=== PATIENT | female | born 1935 | race Caucasian/White ===

== ENCOUNTER 2018-05-14 10:31 | Inpatient (IN) | payer MEDICARE, OTHER ==
[2018-05-14] MEDS: IPRATROPIUM (NEB) 0.5 MG/2.5 ML AMP NEB (10:48)
[2018-05-14] MEDS: ALBUTEROL 0.083% (NEB) 2.5 MG/3 ML AMP NEB (10:48)
[2018-05-14 11:06] LABS: ADD MAN DIFF? NO
[2018-05-14 11:12] LABS: WHITE BLOOD COUNT 7.1 10^3/ul (4.8-10.8)
[2018-05-14 11:12] LABS: BASOPHIL # 0.1 10^3/ul (0.0-0.1); BASOPHILS % 0.7 % (0.0-2.0); EOSINOPHILS # 0.3 10^3/ul (0.0-0.5); EOSINOPHILS % 3.5 % (0.0-7.0); HEMOGLOBIN 11.6 g/dl (12.0-16.0); LYMPHOCYTES # 2.3 10^3/ul (0.8-2.9); LYMPHOCYTES % 32.8 % (15.0-51.0); MEAN CORPUSCULAR HEMOGLOBIN 28.9 pg (29.0-33.0); MEAN CORPUSCULAR HGB CONC 31.4 g/dl (32.0-37.0); MEAN CORPUSCULAR VOLUME 92.3 fl (82.0-101.0); MEAN PLATELET VOLUME 10.2 fl (7.4-10.4); MONOCYTE # 0.4 10^3/ul (0.3-0.9); MONOCYTES % 6.1 % (0.0-11.0); NEUTROPHILS % 56.6 % (39.0-77.0); PLATELET COUNT 184 10^3/UL (140-415); RED BLOOD COUNT 4.01 10^6/ul (4.20-5.40); RED CELL DISTRIBUTION WIDTH 13.9 % (11.5-14.5)
[2018-05-14 11:27] LABS: ANION GAP 8 (5-13); BLOOD UREA NITROGEN 17 mg/dl (7-20); CALCIUM 8.9 mg/dl (8.4-10.2); CARBON DIOXIDE 34 mmol/L (21-31); CHLORIDE 101 mmol/L (97-110); CREATININE 0.99 mg/dl (0.44-1.00); GLUCOSE 95 mg/dl (70-220); POTASSIUM 4.4 mmol/L (3.5-5.1); SODIUM 143 mmol/L (135-144)
[2018-05-14 11:38] LABS: TROPONIN-I < 0.012 ng/ml (0.000-0.120)
[2018-05-14] MEDS: CEFEPIME 2GM/50 ML (PMX) 50 ML IVPB (12:04)
[2018-05-14] MEDS: SODIUM CHLORIDE 0.9% 1L BAG IV* (12:04)
[2018-05-14] MEDS: VANCOMYCIN 1 GM (PMX) 250 ML IVPB (12:47)
[2018-05-14] MEDS ORDERED: ACETAMINOPHEN 325 MG TAB PO (13:30)
[2018-05-14] MEDS ORDERED: ONDANSETRON 4 MG INJ IV (13:30)
[2018-05-14] MEDS ORDERED: NACL 0.9% 3 ML SYG IV (14:00)
[2018-05-14] MEDS ORDERED: VANCOMYCIN IV PER PHARMACY XX (14:00)
[2018-05-14] MEDS ORDERED: SENNA TAB PO (14:30)
[2018-05-14] MEDS: SOD CHLORIDE 0.9% 100 ML (15:45)
[2018-05-14] MEDS: IOHEXOL 300MG/ML 150 ML BTL (15:45)
[2018-05-14] MEDS: PIPER-TAZO 2.25 GM (PMX) 50 ML IVPB (17:56)
[2018-05-14] MEDS ORDERED: PIPER-TAZO 3.375 GM IV (PMX) 100 ML IVPB (18:00)
[2018-05-14] MEDS: VANCOMYCIN 750 MG in SOD CHLORIDE 0.9% 150 ML IVPB (18:51)
[2018-05-14] MEDS: QUETIAPINE 25 MG TAB PO (20:43)
[2018-05-14] MEDS: DEXAMETHASONE 1 MG TAB PO (20:43)
[2018-05-14] MEDS: ALBUTEROL/IPRATROPIUM (NEB) 3 ML AMP HHN (21:01)
[2018-05-14] MEDS: LORAZEPAM 1 MG TAB PO (21:32)
[2018-05-15] MEDS: PIPER-TAZO 2.25 GM (PMX) 50 ML IVPB ×5 (01:05→20:31)
[2018-05-15] MEDS ORDERED: ALBUTEROL/IPRATROPIUM (NEB) 3 ML AMP (05:09)
[2018-05-15] MEDS: LEVOTHYROXINE 25 MCG TAB PO (05:13)
[2018-05-15] MEDS: ALBUTEROL/IPRATROPIUM (NEB) 3 ML AMP HHN ×6 (05:15→22:03)
[2018-05-15 06:02] LABS: ADD MAN DIFF? NO
[2018-05-15 06:04] LABS: EOSINOPHILS # 0.2 10^3/ul (0.0-0.5); EOSINOPHILS % 2.2 % (0.0-7.0); HEMATOCRIT 38.2 % (37.0-47.0); HEMOGLOBIN 11.9 g/dl (12.0-16.0); LYMPHOCYTES # 1.4 10^3/ul (0.8-2.9); LYMPHOCYTES % 19.2 % (15.0-51.0); MEAN CORPUSCULAR HEMOGLOBIN 29.8 pg (29.0-33.0); MEAN CORPUSCULAR HGB CONC 31.2 g/dl (32.0-37.0); MEAN CORPUSCULAR VOLUME 95.7 fl (82.0-101.0); MEAN PLATELET VOLUME 9.8 fl (7.4-10.4); MONOCYTE # 0.2 10^3/ul (0.3-0.9); MONOCYTES % 2.9 % (0.0-11.0); NEUTROPHIL # 5.4 10^3/ul (1.6-7.5); NEUTROPHILS % 75.4 % (39.0-77.0); PLATELET COUNT 157 10^3/UL (140-415); RED BLOOD COUNT 3.99 10^6/ul (4.20-5.40); RED CELL DISTRIBUTION WIDTH 13.9 % (11.5-14.5)
[2018-05-15 06:04] LABS: WHITE BLOOD COUNT 7.1 10^3/ul (4.8-10.8)
[2018-05-15 06:31] LABS: ALANINE AMINOTRANSFERASE 10 IU/L (13-69); ALBUMIN 3.7 g/dl (3.3-4.9); ALBUMIN/GLOBULIN RATIO 1.42; ALKALINE PHOSPHATASE 65 IU/L (42-121); ANION GAP 9 (5-13); ASPARTATE AMINO TRANSFERASE 18 IU/L (15-46); BILIRUBIN,INDIRECT 0.5 mg/dl (0-1.1); BILIRUBIN,TOTAL 0.5 mg/dl (0.2-1.3); BLOOD UREA NITROGEN 14 mg/dl (7-20); CALCIUM 8.5 mg/dl (8.4-10.2); CARBON DIOXIDE 33 mmol/L (21-31); CHLORIDE 103 mmol/L (97-110); CREATININE 1.01 mg/dl (0.44-1.00); GLUCOSE 121 mg/dl (70-220); POTASSIUM 4.2 mmol/L (3.5-5.1); SODIUM 145 mmol/L (135-144); TOTAL PROTEIN 6.3 g/dl (6.1-8.1)
[2018-05-15] MEDS: GUAIFENESIN/DM 5ML CUP PO ×3 (07:01→22:58)
[2018-05-15 08:02] LABS: HEMOGLOBIN A1C 5.5 % (0-5.9)
[2018-05-15] MEDS: FUROSEMIDE 20 MG TAB PO (09:00)
[2018-05-15] MEDS: LORAZEPAM 1 MG TAB PO ×3 (09:00→22:20)
[2018-05-15] MEDS: SPIRONOLACTONE 25 MG TAB PO (09:00)
[2018-05-15] MEDS: DEXAMETHASONE 1 MG TAB PO ×2 (09:28→22:20)
[2018-05-15] MEDS: POTASSIUM CHLORIDE (SR) 20 MEQ TAB PO (09:28)
[2018-05-15] MEDS: ENOXAPARIN 40 MG/0.4 ML SYG SC (09:39)
[2018-05-15] MEDS: METOPROLOL (XL) 25 MG TAB PO (10:20)
[2018-05-15] MEDS: VANCOMYCIN 1.25 GM in SOD CHLORIDE 0.9% 250 ML IVPB (16:42)
[2018-05-15] MEDS: QUETIAPINE 25 MG TAB PO (22:20)
[2018-05-16] MEDS: PIPER-TAZO 2.25 GM (PMX) 50 ML IVPB ×4 (01:09→20:34)
[2018-05-16] MEDS: ACETAMINOPHEN 325 MG TAB PO ×2 (03:15→13:32)
[2018-05-16] MEDS: LORAZEPAM 1 MG TAB PO ×2 (08:53→21:48)
[2018-05-16] MEDS: FUROSEMIDE 20 MG TAB PO (08:53)
[2018-05-16] MEDS: POTASSIUM CHLORIDE (SR) 20 MEQ TAB PO (08:53)
[2018-05-16] MEDS: METOPROLOL (XL) 25 MG TAB PO (08:54)
[2018-05-16] MEDS: SPIRONOLACTONE 25 MG TAB PO (08:55)
[2018-05-16] MEDS: DEXAMETHASONE 1 MG TAB PO ×2 (08:55→21:48)
[2018-05-16] MEDS: ENOXAPARIN 40 MG/0.4 ML SYG SC (08:57)
[2018-05-16] MEDS: ALBUTEROL/IPRATROPIUM (NEB) 3 ML AMP HHN ×4 (09:08→20:00)
[2018-05-16] MEDS: LEVOTHYROXINE 25 MCG TAB PO (09:58)
[2018-05-16] MEDS: VANCOMYCIN 1.25 GM in SOD CHLORIDE 0.9% 250 ML IVPB (16:43)
[2018-05-16] MEDS: QUETIAPINE 25 MG TAB PO (21:00)
[2018-05-17] MEDS: QUETIAPINE 25 MG TAB PO (00:10)
[2018-05-17] MEDS: ACETAMINOPHEN 325 MG TAB PO (00:17)
[2018-05-17] MEDS: HALOPERIDOL 5 MG INJ IM (01:09)
[2018-05-17] MEDS: LEVOTHYROXINE 25 MCG TAB PO (06:00)
[2018-05-17] MEDS: PIPER-TAZO 2.25 GM (PMX) 50 ML IVPB ×2 (06:44)
[2018-05-17 07:30] LABS: CREATININE 0.93 mg/dl (0.44-1.00)
[2018-05-17 07:30] LABS: BLOOD UREA NITROGEN 12 mg/dl (7-20)
[2018-05-17] MEDS: FUROSEMIDE 20 MG TAB PO (08:04)
[2018-05-17] MEDS: SPIRONOLACTONE 25 MG TAB PO (08:04)
[2018-05-17] MEDS: DEXAMETHASONE 1 MG TAB PO (09:00)
[2018-05-17] MEDS: POTASSIUM CHLORIDE (SR) 20 MEQ TAB PO (09:19)
[2018-05-17] MEDS: LORAZEPAM 1 MG TAB PO (09:19)
[2018-05-17] MEDS: METOPROLOL (XL) 25 MG TAB PO (09:19)
[2018-05-17] MEDS: ENOXAPARIN 40 MG/0.4 ML SYG SC (09:21)
[2018-05-17] MEDS: ALBUTEROL/IPRATROPIUM (NEB) 3 ML AMP HHN ×2 (09:40→12:50)
== END 2018-05-17 14:15 | disposition home or self-care (01) | DRG 177 ==
LOC: E/R 10:31 → 2NE 13:09
DX: J69.0 Pneumonitis due to inhalation of food and vomit (principal); J96.90 Respiratory failure, unspecified, unspecified whether with hypoxia or hypercapnia; C78.00 Secondary malignant neoplasm of unspecified lung; C73 Malignant neoplasm of thyroid gland; Z93.0 Tracheostomy status; Z79.82 Long term (current) use of aspirin
CPT/HCPCS: 36415; 71045; 71260; 80048; 80053; 82565; 82962; 83036; 83605; 84484; 84520; 85025; 87040; 87070; 92610; 93005; 94640; 94664; 96365; 96375; 97163; 99291-25

== ENCOUNTER 2018-07-26 04:21 | Inpatient (IN) | payer MEDICARE, OTHER ==
[2018-07-26 05:54] LABS: ADD MAN DIFF? NO
[2018-07-26 05:56] LABS: WHITE BLOOD COUNT 6.6 10^3/ul (4.8-10.8)
[2018-07-26 05:56] LABS: BASOPHILS % 0.5 % (0.0-2.0); EOSINOPHILS # 0.1 10^3/ul (0.0-0.5); EOSINOPHILS % 0.9 % (0.0-7.0); HEMATOCRIT 37.3 % (37.0-47.0); HEMOGLOBIN 11.1 g/dl (12.0-16.0); LYMPHOCYTES # 1.3 10^3/ul (0.8-2.9); LYMPHOCYTES % 19.4 % (15.0-51.0); MEAN CORPUSCULAR HEMOGLOBIN 29.2 pg (29.0-33.0); MEAN CORPUSCULAR HGB CONC 29.8 g/dl (32.0-37.0); MEAN CORPUSCULAR VOLUME 98.2 fl (82.0-101.0); MEAN PLATELET VOLUME 10.8 fl (7.4-10.4); MONOCYTE # 0.4 10^3/ul (0.3-0.9); MONOCYTES % 6.1 % (0.0-11.0); NEUTROPHIL # 4.8 10^3/ul (1.6-7.5); NEUTROPHILS % 72.5 % (39.0-77.0); PLATELET COUNT 196 10^3/UL (140-415)
[2018-07-26] MEDS: PANTOPRAZOLE (EC) 40 MG TAB PO (06:00)
[2018-07-26 06:01] LABS: INR 0.97; PARTIAL THROMBOPLASTIN TIME 25.2 Sec (23.0-35.0)
[2018-07-26 06:02] LABS: ALANINE AMINOTRANSFERASE 26 IU/L (13-69); ALBUMIN/GLOBULIN RATIO 1.21; ALKALINE PHOSPHATASE 52 IU/L (42-121); ASPARTATE AMINO TRANSFERASE 23 IU/L (15-46); BILIRUBIN,INDIRECT 0.2 mg/dl (0-1.1); BILIRUBIN,TOTAL 0.2 mg/dl (0.2-1.3); BLOOD UREA NITROGEN 35 mg/dl (7-20); CALCIUM 8.1 mg/dl (8.4-10.2); CHLORIDE 85 mmol/L (97-110); CREATININE 1.24 mg/dl (0.44-1.00); GLUCOSE 155 mg/dl (70-220); POTASSIUM 3.9 mmol/L (3.5-5.1); SODIUM 142 mmol/L (135-144); TOTAL PROTEIN 7.3 g/dl (6.1-8.1)
[2018-07-26 06:14] LABS: TROPONIN-I 0.037 ng/ml (0.000-0.120)
[2018-07-26 06:27] LABS: ANION GAP 13 (5-13); CARBON DIOXIDE 44 mmol/L (21-31)
[2018-07-26] MEDS: ACETAMINOPHEN 650 MG SUPP PR (06:30)
[2018-07-26] MEDS: CEFEPIME 1GM/50 ML (PMX) 50 ML IVPB (06:54)
[2018-07-26] MEDS: SOD CHLORIDE 0.9% 1,000 ML IV ×2 (06:56→22:51)
[2018-07-26] MEDS: LEVOTHYROXINE 25 MCG TAB PO (07:00)
[2018-07-26] MEDS ORDERED: ONDANSETRON 4 MG INJ IV (07:00)
[2018-07-26] MEDS ORDERED: NACL 0.9% 3 ML SYG IV (07:00)
[2018-07-26] MEDS ORDERED: VANCOMYCIN IV PER PHARMACY XX (07:30)
[2018-07-26] MEDS: VANCOMYCIN 1 GM (PMX) 250 ML IVPB (08:33)
[2018-07-26] MEDS: HEPARIN 5,000 UNIT/1 ML VIAL SC ×2 (09:00→20:41)
[2018-07-26 10:20] LABS: LACTIC ACID 0.8 mmol/L (0.5-2.0)
[2018-07-26] MEDS: PIPER-TAZO 3.375 GM IV (PMX) 100 ML IVPB ×2 (11:50→22:50)
[2018-07-26] MEDS ORDERED: PIPER-TAZO 3.375 GM IV (PMX) 100 ML IVPB (12:00)
[2018-07-26] MEDS: VANCOMYCIN 1 GM 250 ML IVPB (13:11)
[2018-07-26] MEDS: LEVALBUTEROL (NEB) 1.25 MG/0.5 ML AMP HHN ×2 (14:06→19:24)
[2018-07-26] MEDS: LORAZEPAM 1 MG TAB PO (14:12)
[2018-07-26] MEDS: ACETAMINOPHEN 325 MG TAB PO (16:07)
[2018-07-27 00:22] LABS: AADO2 Arterial 156.3 mmHg (7.0-24.0); Allen Test ACCEPTAB; Arterial Blood Gas Oxygen Sat 84.3 mmHG (95.0-100.0); Arterial COHb 0.6 % (0.0-3.0); Arterial Fraction of Oxyhgb 83.6 % (93.0-99.0); Arterial HCO3 42.9 mmol/L (22.0-26.0); Arterial MetHb 0.2 % (0.0-1.5); Arterial pCO2 70.9 mmhg (35-45); MODE TRACH COLLAR; Site Right Brachial
[2018-07-27] MEDS: LEVALBUTEROL (NEB) 1.25 MG/0.5 ML AMP HHN ×4 (01:07→19:41)
[2018-07-27] MEDS: ACETAMINOPHEN 325 MG TAB PO (03:18)
[2018-07-27 05:38] LABS: ADD MAN DIFF? NO
[2018-07-27 05:40] LABS: ABNORMAL IP MESSAGE 1; BASOPHILS % 0.3 % (0.0-2.0); EOSINOPHILS # 0.3 10^3/ul (0.0-0.5); EOSINOPHILS % 2.4 % (0.0-7.0); HEMOGLOBIN 9.8 g/dl (12.0-16.0); LYMPHOCYTES # 0.4 10^3/ul (0.8-2.9); LYMPHOCYTES % 3.9 % (15.0-51.0); MEAN CORPUSCULAR HEMOGLOBIN 29.1 pg (29.0-33.0); MEAN CORPUSCULAR HGB CONC 29.7 g/dl (32.0-37.0); MEAN CORPUSCULAR VOLUME 97.9 fl (82.0-101.0); MEAN PLATELET VOLUME 10.3 fl (7.4-10.4); MONOCYTE # 0.7 10^3/ul (0.3-0.9); MONOCYTES % 6.6 % (0.0-11.0); NEUTROPHILS % 86.2 % (39.0-77.0); PLATELET COUNT 149 10^3/UL (140-415); RED BLOOD COUNT 3.37 10^6/ul (4.20-5.40)
[2018-07-27 05:40] LABS: WHITE BLOOD COUNT 10.4 10^3/ul (4.8-10.8)
[2018-07-27 05:42] LABS: POSITIVE DIFF @See below
[2018-07-27 05:52] LABS: HEMOGLOBIN A1C 5.4 % (0-5.9)
[2018-07-27 06:07] LABS: ALANINE AMINOTRANSFERASE 20 IU/L (13-69); ALBUMIN 3.2 g/dl (3.3-4.9); ALBUMIN/GLOBULIN RATIO 1.18; ALKALINE PHOSPHATASE 40 IU/L (42-121); ASPARTATE AMINO TRANSFERASE 22 IU/L (15-46); BILIRUBIN,INDIRECT 0.2 mg/dl (0-1.1); BILIRUBIN,TOTAL 0.2 mg/dl (0.2-1.3); BLOOD UREA NITROGEN 29 mg/dl (7-20); CALCIUM 7.6 mg/dl (8.4-10.2); CHLORIDE 92 mmol/L (97-110); CREATININE 1.22 mg/dl (0.44-1.00); GLUCOSE 123 mg/dl (70-220); POTASSIUM 3.3 mmol/L (3.5-5.1); SODIUM 141 mmol/L (135-144); TOTAL PROTEIN 5.9 g/dl (6.1-8.1)
[2018-07-27] MEDS: PANTOPRAZOLE (EC) 40 MG TAB PO (06:23)
[2018-07-27] MEDS: PIPER-TAZO 3.375 GM IV (PMX) 100 ML IVPB ×3 (06:23→20:52)
[2018-07-27] MEDS: LEVOTHYROXINE 25 MCG TAB PO (06:23)
[2018-07-27 06:26] LABS: ANION GAP 7 (5-13); CARBON DIOXIDE 42 mmol/L (21-31)
[2018-07-27] MEDS: HEPARIN 5,000 UNIT/1 ML VIAL SC ×2 (08:49→20:52)
[2018-07-27 11:55] LABS: AADO2 Arterial 208.4 mmHg (7.0-24.0); Arterial Blood Gas Oxygen Sat 97.1 mmHG (95.0-100.0); Arterial COHb 0.2 % (0.0-3.0); Arterial Fraction of Oxyhgb 96.6 % (93.0-99.0); Arterial HCO3 48.1 mmol/L (22.0-26.0); Arterial MetHb 0.3 % (0.0-1.5); Arterial pCO2 105.5 mmhg (35-45); MODE TRACH COLLAR; Site Right Brachial
[2018-07-27] MEDS: SOD CHLORIDE 0.9% 1,000 ML IV (13:23)
[2018-07-27] MEDS: VANCOMYCIN 1 GM 250 ML IVPB (13:30)
[2018-07-27 14:10] LABS: AADO2 Arterial 216.8 mmHg (7.0-24.0); Arterial Base Excess 16.8 mmol/L (-3.0-3); Arterial Blood Gas Oxygen Sat 95.2 mmHG (95.0-100.0); Arterial COHb 0.3 % (0.0-3.0); Arterial Fraction of Oxyhgb 94.7 % (93.0-99.0); Arterial HCO3 43.5 mmol/L (22.0-26.0); Arterial MetHb 0.2 % (0.0-1.5); Arterial pCO2 62.8 mmhg (35-45); MODE VENT - PC; Site Right Brachial
[2018-07-27] MEDS: PROPOFOL 100 ML IV ×2 (14:47→19:37)
[2018-07-27] MEDS: POTASSIUM CHLORIDE 100 ML IVPB ×2 (16:31→18:49)
[2018-07-27] MEDS ORDERED: NORepinephrine 8MG/250 ML (PMX 250 ML IV (19:30)
[2018-07-28] MEDS: SOD CHLORIDE 0.9% 1,000 ML IV ×2 (00:06→13:27)
[2018-07-28] MEDS: LEVALBUTEROL (NEB) 1.25 MG/0.5 ML AMP HHN ×4 (01:21→19:27)
[2018-07-28] MEDS: PANTOPRAZOLE (EC) 40 MG TAB PO (05:01)
[2018-07-28] MEDS: PIPER-TAZO 3.375 GM IV (PMX) 100 ML IVPB ×3 (05:01→20:13)
[2018-07-28] MEDS: LEVOTHYROXINE 25 MCG TAB PO (05:01)
[2018-07-28 06:15] LABS: ADD MAN DIFF? NO
[2018-07-28 06:19] LABS: BASOPHILS % 0.5 % (0.0-2.0); EOSINOPHILS # 0.4 10^3/ul (0.0-0.5); EOSINOPHILS % 6.3 % (0.0-7.0); HEMATOCRIT 31.1 % (37.0-47.0); HEMOGLOBIN 9.6 g/dl (12.0-16.0); LYMPHOCYTES # 0.7 10^3/ul (0.8-2.9); LYMPHOCYTES % 12.5 % (15.0-51.0); MEAN CORPUSCULAR HEMOGLOBIN 29.4 pg (29.0-33.0); MEAN CORPUSCULAR HGB CONC 30.9 g/dl (32.0-37.0); MEAN CORPUSCULAR VOLUME 95.4 fl (82.0-101.0); MEAN PLATELET VOLUME 9.9 fl (7.4-10.4); MONOCYTE # 0.3 10^3/ul (0.3-0.9); NEUTROPHIL # 4.4 10^3/ul (1.6-7.5); NEUTROPHILS % 75.4 % (39.0-77.0); PLATELET COUNT 118 10^3/UL (140-415); RED BLOOD COUNT 3.26 10^6/ul (4.20-5.40)
[2018-07-28 06:19] LABS: WHITE BLOOD COUNT 5.8 10^3/ul (4.8-10.8)
[2018-07-28 06:53] LABS: ANION GAP 5 (5-13); BLOOD UREA NITROGEN 32 mg/dl (7-20); CALCIUM 7.7 mg/dl (8.4-10.2); CARBON DIOXIDE 37 mmol/L (21-31); CHLORIDE 100 mmol/L (97-110); GLUCOSE 92 mg/dl (70-220); MAGNESIUM 2.1 mg/dl (1.7-2.5); PHOSPHORUS 2.2 mg/dl (2.5-4.9); POTASSIUM 3.4 mmol/L (3.5-5.1); SODIUM 142 mmol/L (135-144)
[2018-07-28] MEDS ORDERED: ADENOSINE 3 MG/ML SYRINGE IV (07:00)
[2018-07-28 09:00] LABS: AADO2 Arterial 279.4 mmHg (7.0-24.0); Allen Test ACCEPTAB; Arterial Base Excess 11.7 mmol/L (-3.0-3); Arterial Blood Gas Oxygen Sat 97.5 mmHG (95.0-100.0); Arterial COHb 0.3 % (0.0-3.0); Arterial MetHb 0.2 % (0.0-1.5); Arterial pCO2 45.9 mmhg (35-45); Blood Gas IEPAP 25/5; Site Right Radial
[2018-07-28] MEDS: HEPARIN 5,000 UNIT/1 ML VIAL SC ×2 (09:51→20:20)
[2018-07-28] MEDS: POTASSIUM CHLORIDE 50 ML IVPB ×2 (09:51→10:47)
[2018-07-28] MEDS: PROPOFOL 100 ML IV (12:50)
[2018-07-28] MEDS: VANCOMYCIN 1 GM 250 ML IVPB (12:57)
[2018-07-28 13:12] LABS: VANCOMYCIN,TROUGH 13.7 ug/ml (10.0-20.0)
[2018-07-28] MEDS: LORAZEPAM 4 MG/ML VIAL IV ×2 (16:56→22:56)
[2018-07-28] MEDS: DOCUSATE SODIUM 100 MG CAP PO (20:12)
[2018-07-28] MEDS: DIPHENHYDRAMINE 50 MG INJ IV (20:13)
[2018-07-28] MEDS ORDERED: METOPROLOL 5 MG INJ (23:09)
[2018-07-28] MEDS ORDERED: DILTIAZEM 25 MG INJ (23:13)
[2018-07-28] MEDS ORDERED: AMIODARONE 150MG/D5W BOLUS 100 ML (23:18)
[2018-07-28] MEDS: ADENOSINE 6 MG INJ IV ×2 (23:25→23:27)
[2018-07-28] MEDS: AMIODARONE 150MG/D5W BOLUS 100 ML IV (23:28)
[2018-07-28] MEDS: METOPROLOL 5 MG INJ IV (23:43)
[2018-07-28 23:55] LABS: Allen Test ACCEPTAB; Arterial Base Excess 6.3 mmol/L (-3.0-3); Arterial Blood Gas Oxygen Sat 97.7 mmHG (95.0-100.0); Arterial COHb 0.3 % (0.0-3.0); Arterial Fraction of Oxyhgb 97.2 % (93.0-99.0); Arterial HCO3 32.6 mmol/L (22.0-26.0); Arterial MetHb 0.2 % (0.0-1.5); Arterial pCO2 55.4 mmhg (35-45); Blood Gas PS 25/5; Site Right Radial
[2018-07-29] MEDS: AMIODARONE 900 MG in DEXTROSE 5% 482 ML IV (00:03)
[2018-07-29] MEDS: PROPOFOL 100 ML IV ×3 (01:00→19:56)
[2018-07-29] MEDS: LEVALBUTEROL (NEB) 1.25 MG/0.5 ML AMP HHN ×4 (01:19→20:55)
[2018-07-29] MEDS: LORAZEPAM 4 MG/ML VIAL IV ×2 (03:12→21:08)
[2018-07-29 05:14] LABS: ADD MAN DIFF? NO
[2018-07-29] MEDS: LEVOTHYROXINE 25 MCG TAB PO (05:18)
[2018-07-29] MEDS: SOD CHLORIDE 0.9% 1,000 ML IV ×3 (05:18→20:44)
[2018-07-29] MEDS: PANTOPRAZOLE (EC) 40 MG TAB PO (05:18)
[2018-07-29] MEDS: PIPER-TAZO 3.375 GM IV (PMX) 100 ML IVPB ×3 (05:18→21:08)
[2018-07-29 05:24] LABS: WHITE BLOOD COUNT 6.3 10^3/ul (4.8-10.8)
[2018-07-29 05:24] LABS: BASOPHILS % 0.3 % (0.0-2.0); EOSINOPHILS # 0.4 10^3/ul (0.0-0.5); EOSINOPHILS % 6.7 % (0.0-7.0); HEMATOCRIT 33.4 % (37.0-47.0); HEMOGLOBIN 10.3 g/dl (12.0-16.0); LYMPHOCYTES # 0.6 10^3/ul (0.8-2.9); LYMPHOCYTES % 9.5 % (15.0-51.0); MEAN CORPUSCULAR HEMOGLOBIN 29.6 pg (29.0-33.0); MEAN CORPUSCULAR HGB CONC 30.8 g/dl (32.0-37.0); MONOCYTE # 0.5 10^3/ul (0.3-0.9); MONOCYTES % 7.6 % (0.0-11.0); NEUTROPHIL # 4.8 10^3/ul (1.6-7.5); NEUTROPHILS % 75.6 % (39.0-77.0); PLATELET COUNT 124 10^3/UL (140-415); RED BLOOD COUNT 3.48 10^6/ul (4.20-5.40); RED CELL DISTRIBUTION WIDTH 14.9 % (11.5-14.5)
[2018-07-29 05:39] LABS: ANION GAP 8 (5-13); BLOOD UREA NITROGEN 30 mg/dl (7-20); CALCIUM 7.7 mg/dl (8.4-10.2); CARBON DIOXIDE 30 mmol/L (21-31); CHLORIDE 104 mmol/L (97-110); CREATININE 1.08 mg/dl (0.44-1.00); GLUCOSE 122 mg/dl (70-220); SODIUM 142 mmol/L (135-144)
[2018-07-29] MEDS: DOCUSATE SODIUM 100 MG CAP PO ×2 (09:00→19:55)
[2018-07-29] MEDS: HEPARIN 5,000 UNIT/1 ML VIAL SC ×2 (09:31→20:46)
[2018-07-29] MEDS: LIDOCAINE 1% (MPF) 5 ML VIAL SC (13:00)
[2018-07-29] MEDS: SOD CHLORIDE 0.9% 500 ML IV (13:04)
[2018-07-29] MEDS: VANCOMYCIN 1 GM 250 ML IVPB (13:32)
[2018-07-29] MEDS: DIPHENHYDRAMINE 50 MG INJ IV (23:37)
[2018-07-30] MEDS: LEVALBUTEROL (NEB) 1.25 MG/0.5 ML AMP HHN ×3 (01:37→15:09)
[2018-07-30] MEDS: PROPOFOL 100 ML IV ×2 (01:41→12:48)
[2018-07-30] MEDS: SOD CHLORIDE 0.9% 250 ML IV (04:21)
[2018-07-30 05:14] LABS: ADD MAN DIFF? NO
[2018-07-30 05:26] LABS: WHITE BLOOD COUNT 4.8 10^3/ul (4.8-10.8)
[2018-07-30 05:26] LABS: BASOPHILS % 0.4 % (0.0-2.0); EOSINOPHILS # 0.5 10^3/ul (0.0-0.5); EOSINOPHILS % 9.5 % (0.0-7.0); HEMATOCRIT 28.3 % (37.0-47.0); HEMOGLOBIN 8.7 g/dl (12.0-16.0); LYMPHOCYTES # 0.9 10^3/ul (0.8-2.9); LYMPHOCYTES % 18.1 % (15.0-51.0); MEAN CORPUSCULAR HEMOGLOBIN 29.2 pg (29.0-33.0); MEAN CORPUSCULAR HGB CONC 30.7 g/dl (32.0-37.0); MEAN PLATELET VOLUME 11.2 fl (7.4-10.4); MONOCYTE # 0.4 10^3/ul (0.3-0.9); MONOCYTES % 8.2 % (0.0-11.0); NEUTROPHILS % 63.4 % (39.0-77.0); PLATELET COUNT 114 10^3/UL (140-415); RED BLOOD COUNT 2.98 10^6/ul (4.20-5.40); RED CELL DISTRIBUTION WIDTH 14.8 % (11.5-14.5)
[2018-07-30 05:40] LABS: POSITIVE DIFF @See below
[2018-07-30 05:57] LABS: ANION GAP 5 (5-13); BLOOD UREA NITROGEN 27 mg/dl (7-20); CALCIUM 7.6 mg/dl (8.4-10.2); CARBON DIOXIDE 32 mmol/L (21-31); CHLORIDE 108 mmol/L (97-110); GLUCOSE 78 mg/dl (70-220); SODIUM 145 mmol/L (135-144)
[2018-07-30] MEDS: PANTOPRAZOLE (EC) 40 MG TAB PO (06:00)
[2018-07-30] MEDS: PIPER-TAZO 3.375 GM IV (PMX) 100 ML IVPB ×3 (06:05→21:55)
[2018-07-30] MEDS: SOD CHLORIDE 0.9% 1,000 ML IV (06:06)
[2018-07-30] MEDS: LEVOTHYROXINE 25 MCG TAB PO (06:47)
[2018-07-30] MEDS: HEPARIN 5,000 UNIT/1 ML VIAL SC ×2 (08:12→21:23)
[2018-07-30] MEDS: POTASSIUM CHLORIDE 50 ML IVPB ×3 (08:14→10:41)
[2018-07-30] MEDS: DOCUSATE SODIUM 100 MG CAP PO ×2 (08:34→21:00)
[2018-07-30] MEDS: VANCOMYCIN 1 GM 250 ML IVPB (13:17)
[2018-07-30] MEDS: LEVALBUTEROL (HFA) 15 GM INHALER INH (20:59)
[2018-07-31] MEDS: LEVALBUTEROL (HFA) 15 GM INHALER INH ×4 (01:14→19:26)
[2018-07-31] MEDS: PROPOFOL 100 ML IV (01:21)
[2018-07-31] MEDS: SOD CHLORIDE 0.9% 1,000 ML IV ×2 (01:21→16:02)
[2018-07-31 05:39] LABS: ADD MAN DIFF? NO
[2018-07-31 05:50] LABS: BASOPHILS % 0.2 % (0.0-2.0); EOSINOPHILS # 0.5 10^3/ul (0.0-0.5); EOSINOPHILS % 10.7 % (0.0-7.0); HEMATOCRIT 29.1 % (37.0-47.0); LYMPHOCYTES # 0.9 10^3/ul (0.8-2.9); LYMPHOCYTES % 17.5 % (15.0-51.0); MEAN CORPUSCULAR HEMOGLOBIN 29.2 pg (29.0-33.0); MEAN CORPUSCULAR HGB CONC 30.9 g/dl (32.0-37.0); MEAN CORPUSCULAR VOLUME 94.5 fl (82.0-101.0); MEAN PLATELET VOLUME 11.2 fl (7.4-10.4); MONOCYTE # 0.4 10^3/ul (0.3-0.9); MONOCYTES % 7.5 % (0.0-11.0); NEUTROPHIL # 3.2 10^3/ul (1.6-7.5); NEUTROPHILS % 63.7 % (39.0-77.0); PLATELET COUNT 113 10^3/UL (140-415); RED BLOOD COUNT 3.08 10^6/ul (4.20-5.40); RED CELL DISTRIBUTION WIDTH 14.9 % (11.5-14.5)
[2018-07-31] MEDS: PIPER-TAZO 3.375 GM IV (PMX) 100 ML IVPB ×3 (05:50→21:16)
[2018-07-31] MEDS: LORAZEPAM 4 MG/ML VIAL IV ×2 (05:50→14:36)
[2018-07-31] MEDS: PANTOPRAZOLE (EC) 40 MG TAB PO (06:00)
[2018-07-31 06:19] LABS: ANION GAP 9 (5-13); BLOOD UREA NITROGEN 23 mg/dl (7-20); CALCIUM 7.8 mg/dl (8.4-10.2); CARBON DIOXIDE 28 mmol/L (21-31); CHLORIDE 109 mmol/L (97-110); CREATININE 1.05 mg/dl (0.44-1.00); GLUCOSE 67 mg/dl (70-220); POTASSIUM 3.3 mmol/L (3.5-5.1); SODIUM 146 mmol/L (135-144)
[2018-07-31] MEDS: LEVOTHYROXINE 25 MCG TAB PO (06:53)
[2018-07-31] MEDS: DOCUSATE SODIUM 100 MG CAP PO ×2 (09:00→20:06)
[2018-07-31] MEDS: POTASSIUM CHLORIDE 100 ML IVPB ×2 (10:08→12:08)
[2018-07-31] MEDS: HEPARIN 5,000 UNIT/1 ML VIAL SC ×2 (10:39→20:08)
[2018-07-31] MEDS: POTASSIUM CHLORIDE 50 ML IVPB (12:04)
[2018-07-31] MEDS: VANCOMYCIN 1 GM 250 ML IVPB (13:49)
[2018-07-31] MEDS ORDERED: DEXMEDETOMIDINE HCL 200 MCG in SOD CHLORIDE 0.9% 48 ML IV (16:30)
[2018-07-31] MEDS: MIRTAZAPINE 15 MG TAB PO (20:07)
[2018-07-31] MEDS: HYDROmorphONE 0.5 MG/0.5 ML SYG IV (20:25)
[2018-08-01] MEDS: LEVALBUTEROL (HFA) 15 GM INHALER INH ×4 (01:26→20:21)
[2018-08-01] MEDS: HYDROmorphONE 0.5 MG/0.5 ML SYG IV ×2 (03:50→17:45)
[2018-08-01 04:50] LABS: Allen Test ACCEPTAB; Arterial Blood Gas Oxygen Sat 94.9 mmHG (95.0-100.0); Arterial COHb 0.3 % (0.0-3.0); Arterial Fraction of Oxyhgb 94.4 % (93.0-99.0); Arterial HCO3 21.4 mmol/L (22.0-26.0); Arterial MetHb 0.2 % (0.0-1.5); Arterial pCO2 32.1 mmhg (35-45); MODE VENT - AC; Site Left Radial
[2018-08-01 05:23] LABS: ADD MAN DIFF? NO
[2018-08-01 05:34] LABS: BASOPHILS % 0.4 % (0.0-2.0); EOSINOPHILS # 0.4 10^3/ul (0.0-0.5); EOSINOPHILS % 8.3 % (0.0-7.0); HEMATOCRIT 30.2 % (37.0-47.0); LYMPHOCYTES # 0.9 10^3/ul (0.8-2.9); LYMPHOCYTES % 16.1 % (15.0-51.0); MEAN CORPUSCULAR HEMOGLOBIN 28.6 pg (29.0-33.0); MEAN CORPUSCULAR HGB CONC 29.8 g/dl (32.0-37.0); MEAN CORPUSCULAR VOLUME 95.9 fl (82.0-101.0); MEAN PLATELET VOLUME 11.2 fl (7.4-10.4); MONOCYTE # 0.5 10^3/ul (0.3-0.9); MONOCYTES % 8.5 % (0.0-11.0); NEUTROPHIL # 3.5 10^3/ul (1.6-7.5); NEUTROPHILS % 66.3 % (39.0-77.0); PLATELET COUNT 133 10^3/UL (140-415); RED BLOOD COUNT 3.15 10^6/ul (4.20-5.40); RED CELL DISTRIBUTION WIDTH 14.7 % (11.5-14.5)
[2018-08-01 05:34] LABS: WHITE BLOOD COUNT 5.3 10^3/ul (4.8-10.8)
[2018-08-01] MEDS: PANTOPRAZOLE (EC) 40 MG TAB PO (06:00)
[2018-08-01 06:10] LABS: ANION GAP 7 (5-13); BLOOD UREA NITROGEN 20 mg/dl (7-20); CALCIUM 8.1 mg/dl (8.4-10.2); CARBON DIOXIDE 26 mmol/L (21-31); CHLORIDE 114 mmol/L (97-110); CREATININE 1.07 mg/dl (0.44-1.00); GLUCOSE 73 mg/dl (70-220); POTASSIUM 3.7 mmol/L (3.5-5.1); SODIUM 147 mmol/L (135-144)
[2018-08-01] MEDS: PIPER-TAZO 3.375 GM IV (PMX) 100 ML IVPB ×3 (06:37→21:40)
[2018-08-01] MEDS: SOD CHLORIDE 0.9% 1,000 ML IV ×2 (06:37→20:14)
[2018-08-01] MEDS: LEVOTHYROXINE 25 MCG TAB PO (06:37)
[2018-08-01] MEDS: DOCUSATE SODIUM 100 MG CAP PO ×2 (08:16→21:40)
[2018-08-01] MEDS: HEPARIN 5,000 UNIT/1 ML VIAL SC ×2 (08:21→21:41)
[2018-08-01] MEDS ORDERED: LORAZEPAM 2 MG INJ (09:13)
[2018-08-01] MEDS: LORAZEPAM 2 MG INJ IV ×2 (09:23→18:20)
[2018-08-01] MEDS: LIDOCAINE 1% (MPF) 5 ML VIAL SC ×2 (11:00→11:30)
[2018-08-01] MEDS: LORAZEPAM 2 MG INJ IM (16:27)
[2018-08-01] MEDS: VANCOMYCIN 1 GM 250 ML IVPB (18:38)
[2018-08-01] MEDS: FUROSEMIDE 20 MG INJ IV (21:39)
[2018-08-01] MEDS: MIRTAZAPINE 15 MG TAB PO (21:39)
[2018-08-01] MEDS: MUPIROCIN 2% 22 GM OINT TOP (23:40)
[2018-08-02] MEDS: LEVALBUTEROL (HFA) 15 GM INHALER INH ×4 (01:33→19:50)
[2018-08-02] MEDS: HYDROmorphONE 0.5 MG/0.5 ML SYG IV ×2 (02:40→14:58)
[2018-08-02 05:19] LABS: ADD MAN DIFF? NO
[2018-08-02 05:38] LABS: BASOPHILS % 0.3 % (0.0-2.0); EOSINOPHILS # 0.5 10^3/ul (0.0-0.5); EOSINOPHILS % 7.8 % (0.0-7.0); HEMATOCRIT 33.5 % (37.0-47.0); LYMPHOCYTES # 1.4 10^3/ul (0.8-2.9); LYMPHOCYTES % 22.9 % (15.0-51.0); MEAN CORPUSCULAR HEMOGLOBIN 28.7 pg (29.0-33.0); MEAN CORPUSCULAR HGB CONC 29.9 g/dl (32.0-37.0); MEAN CORPUSCULAR VOLUME 96.3 fl (82.0-101.0); MEAN PLATELET VOLUME 11.3 fl (7.4-10.4); MONOCYTE # 0.5 10^3/ul (0.3-0.9); MONOCYTES % 7.8 % (0.0-11.0); NEUTROPHIL # 3.7 10^3/ul (1.6-7.5); NEUTROPHILS % 60.9 % (39.0-77.0); PLATELET COUNT 146 10^3/UL (140-415); RED BLOOD COUNT 3.48 10^6/ul (4.20-5.40); RED CELL DISTRIBUTION WIDTH 14.6 % (11.5-14.5)
[2018-08-02] MEDS: PANTOPRAZOLE (EC) 40 MG TAB PO (05:39)
[2018-08-02 05:41] LABS: ANION GAP 9 (5-13); BLOOD UREA NITROGEN 18 mg/dl (7-20); CALCIUM 8.4 mg/dl (8.4-10.2); CARBON DIOXIDE 26 mmol/L (21-31); CHLORIDE 112 mmol/L (97-110); GLUCOSE 72 mg/dl (70-220); POSITIVE DIFF @See below; POTASSIUM 3.5 mmol/L (3.5-5.1); SODIUM 147 mmol/L (135-144)
[2018-08-02] MEDS: PIPER-TAZO 3.375 GM IV (PMX) 100 ML IVPB ×3 (05:57→21:46)
[2018-08-02] MEDS: LEVOTHYROXINE 25 MCG TAB PO (06:00)
[2018-08-02] MEDS: MUPIROCIN 2% 22 GM OINT TOP ×2 (08:06→21:46)
[2018-08-02] MEDS: HEPARIN 5,000 UNIT/1 ML VIAL SC ×2 (08:22→21:46)
[2018-08-02] MEDS: DOCUSATE SODIUM 10 MG/ML (10ML CUP) PO ×2 (10:00→21:00)
[2018-08-02] MEDS: SOD CHLORIDE 0.9% 1,000 ML IV (10:42)
[2018-08-02] MEDS: FUROSEMIDE 20 MG INJ IV ×2 (12:17→18:51)
[2018-08-02] MEDS: LORAZEPAM 2 MG INJ IV (13:40)
[2018-08-02 17:27] LABS: VANCOMYCIN,TROUGH 11.2 ug/ml (10.0-20.0)
[2018-08-02] MEDS: VANCOMYCIN 1 GM 250 ML IVPB (18:51)
[2018-08-02] MEDS: MIRTAZAPINE 15 MG TAB PO (21:46)
[2018-08-03] MEDS: HYDROmorphONE 0.5 MG/0.5 ML SYG IV ×2 (00:43→09:20)
[2018-08-03] MEDS: SOD CHLORIDE 0.9% 1,000 ML IV ×2 (01:03→15:08)
[2018-08-03] MEDS: LEVALBUTEROL (HFA) 15 GM INHALER INH ×4 (01:13→21:11)
[2018-08-03] MEDS: QUETIAPINE 25 MG TAB PO (02:07)
[2018-08-03] MEDS: LORAZEPAM 2 MG INJ IV ×2 (02:08→23:04)
[2018-08-03] MEDS: DIPHENHYDRAMINE 50 MG INJ IV (03:03)
[2018-08-03 05:13] LABS: ADD MAN DIFF? NO
[2018-08-03 05:27] LABS: WHITE BLOOD COUNT 5.7 10^3/ul (4.8-10.8)
[2018-08-03 05:27] LABS: BASOPHILS % 0.2 % (0.0-2.0); EOSINOPHILS # 0.4 10^3/ul (0.0-0.5); EOSINOPHILS % 7.6 % (0.0-7.0); HEMATOCRIT 33.4 % (37.0-47.0); HEMOGLOBIN 10.4 g/dl (12.0-16.0); LYMPHOCYTES # 1.3 10^3/ul (0.8-2.9); LYMPHOCYTES % 22.5 % (15.0-51.0); MEAN CORPUSCULAR HEMOGLOBIN 28.8 pg (29.0-33.0); MEAN CORPUSCULAR HGB CONC 31.1 g/dl (32.0-37.0); MEAN CORPUSCULAR VOLUME 92.5 fl (82.0-101.0); MEAN PLATELET VOLUME 10.6 fl (7.4-10.4); MONOCYTE # 0.4 10^3/ul (0.3-0.9); MONOCYTES % 7.4 % (0.0-11.0); NEUTROPHIL # 3.5 10^3/ul (1.6-7.5); NEUTROPHILS % 61.9 % (39.0-77.0); PLATELET COUNT 145 10^3/UL (140-415); RED BLOOD COUNT 3.61 10^6/ul (4.20-5.40); RED CELL DISTRIBUTION WIDTH 14.5 % (11.5-14.5)
[2018-08-03 06:03] LABS: ALBUMIN 3.3 g/dl (3.3-4.9); ANION GAP 8 (5-13); BLOOD UREA NITROGEN 15 mg/dl (7-20); CALCIUM 8.4 mg/dl (8.4-10.2); CARBON DIOXIDE 28 mmol/L (21-31); CHLORIDE 108 mmol/L (97-110); CREATININE 1.16 mg/dl (0.44-1.00); GLUCOSE 74 mg/dl (70-220); MAGNESIUM 1.7 mg/dl (1.7-2.5); POTASSIUM 3.3 mmol/L (3.5-5.1); SODIUM 144 mmol/L (135-144)
[2018-08-03] MEDS: LEVOTHYROXINE 25 MCG TAB PO (06:28)
[2018-08-03] MEDS: PANTOPRAZOLE (EC) 40 MG TAB PO (06:28)
[2018-08-03] MEDS: PIPER-TAZO 3.375 GM IV (PMX) 100 ML IVPB ×3 (06:28→21:17)
[2018-08-03] MEDS: DOCUSATE SODIUM 10 MG/ML (10ML CUP) PO ×2 (09:18→21:00)
[2018-08-03] MEDS: MUPIROCIN 2% 22 GM OINT TOP ×2 (09:26→21:17)
[2018-08-03] MEDS: HEPARIN 5,000 UNIT/1 ML VIAL SC ×2 (09:28→21:31)
[2018-08-03] MEDS: POTASSIUM CHLORIDE 100 ML IVPB ×2 (10:56→14:07)
[2018-08-03] MEDS: POTASSIUM CHLORIDE 50 ML IVPB ×2 (10:56→14:05)
[2018-08-03] MEDS: MIRTAZAPINE 15 MG TAB PO (21:00)
[2018-08-04] MEDS: LEVALBUTEROL (HFA) 15 GM INHALER INH ×4 (02:00→19:24)
[2018-08-04] MEDS: SOD CHLORIDE 0.9% 1,000 ML IV (05:26)
[2018-08-04] MEDS: PANTOPRAZOLE (EC) 40 MG TAB PO (05:37)
[2018-08-04] MEDS: PIPER-TAZO 3.375 GM IV (PMX) 100 ML IVPB ×3 (05:47→21:32)
[2018-08-04] MEDS: LEVOTHYROXINE 25 MCG TAB PO (06:35)
[2018-08-04] MEDS: DOCUSATE SODIUM 10 MG/ML (10ML CUP) PO ×2 (09:00→21:00)
[2018-08-04] MEDS: MUPIROCIN 2% 22 GM OINT TOP ×2 (09:17→21:31)
[2018-08-04] MEDS: HEPARIN 5,000 UNIT/1 ML VIAL SC ×2 (09:29→21:15)
[2018-08-04] MEDS: LORAZEPAM 2 MG INJ IV ×2 (12:27→20:32)
[2018-08-04] MEDS ORDERED: VANCOMYCIN IV PER PHARMACY XX (12:30)
[2018-08-04] MEDS: BUMETANIDE 6 MG in DEXTROSE 5% 36 ML IV (14:25)
[2018-08-04] MEDS: BARIUM SULFATE 135 ML (E-Z HD) PO ×2 (15:20→15:21)
[2018-08-04] MEDS: VANCOMYCIN HCL 2 GM in SOD CHLORIDE 0.9% 500 ML IVPB (15:27)
[2018-08-04] MEDS: MIRTAZAPINE 15 MG TAB PO ×2 (21:00→21:29)
[2018-08-05] MEDS: LEVALBUTEROL (HFA) 15 GM INHALER INH ×4 (01:23→19:26)
[2018-08-05] MEDS ORDERED: ALBUMIN HUMAN 25% 100 ML IV (01:30)
[2018-08-05] MEDS: LORAZEPAM 2 MG INJ IV ×2 (02:36→18:19)
[2018-08-05] MEDS: SOD CHLORIDE 0.9% 500 ML IV (02:39)
[2018-08-05] MEDS: HALOPERIDOL 5 MG INJ IM ×2 (04:20→20:48)
[2018-08-05] MEDS: PANTOPRAZOLE (EC) 40 MG TAB PO (05:31)
[2018-08-05] MEDS: PIPER-TAZO 3.375 GM IV (PMX) 100 ML IVPB ×3 (05:31→20:48)
[2018-08-05 06:41] LABS: ADD MAN DIFF? NO
[2018-08-05 06:48] LABS: WHITE BLOOD COUNT 5.4 10^3/ul (4.8-10.8)
[2018-08-05 06:48] LABS: BASOPHILS % 0.7 % (0.0-2.0); EOSINOPHILS # 0.4 10^3/ul (0.0-0.5); EOSINOPHILS % 7.6 % (0.0-7.0); HEMATOCRIT 34.4 % (37.0-47.0); HEMOGLOBIN 10.9 g/dl (12.0-16.0); LYMPHOCYTES # 1.2 10^3/ul (0.8-2.9); LYMPHOCYTES % 22.8 % (15.0-51.0); MEAN CORPUSCULAR HEMOGLOBIN 28.8 pg (29.0-33.0); MEAN CORPUSCULAR HGB CONC 31.7 g/dl (32.0-37.0); MEAN CORPUSCULAR VOLUME 90.8 fl (82.0-101.0); MEAN PLATELET VOLUME 10.4 fl (7.4-10.4); MONOCYTE # 0.6 10^3/ul (0.3-0.9); MONOCYTES % 10.2 % (0.0-11.0); NEUTROPHIL # 3.1 10^3/ul (1.6-7.5); NEUTROPHILS % 58.1 % (39.0-77.0); PLATELET COUNT 185 10^3/UL (140-415); RED BLOOD COUNT 3.79 10^6/ul (4.20-5.40); RED CELL DISTRIBUTION WIDTH 14.5 % (11.5-14.5)
[2018-08-05 07:36] LABS: ALBUMIN 3.4 g/dl (3.3-4.9); ANION GAP 11 (5-13); BLOOD UREA NITROGEN 12 mg/dl (7-20); CALCIUM 8.6 mg/dl (8.4-10.2); CARBON DIOXIDE 28 mmol/L (21-31); CHLORIDE 105 mmol/L (97-110); CREATININE 1.08 mg/dl (0.44-1.00); GLUCOSE 75 mg/dl (70-220); PHOSPHORUS 3.7 mg/dl (2.5-4.9); POTASSIUM 3.1 mmol/L (3.5-5.1); SODIUM 144 mmol/L (135-144)
[2018-08-05 07:39] LABS: PHOSPHORUS 3.7 mg/dl (2.5-4.9)
[2018-08-05 07:39] LABS: MAGNESIUM 1.6 mg/dl (1.7-2.5)
[2018-08-05] MEDS: LEVOTHYROXINE 25 MCG TAB PO (08:24)
[2018-08-05] MEDS: BALSAM PERU/CASTOR OIL 60 GM TUBE TOP (09:00)
[2018-08-05] MEDS: DOCUSATE SODIUM 10 MG/ML (10ML CUP) PO ×3 (09:00→21:00)
[2018-08-05] MEDS: HEPARIN 5,000 UNIT/1 ML VIAL SC ×2 (09:00→20:50)
[2018-08-05] MEDS: MUPIROCIN 2% 22 GM OINT TOP ×2 (09:00→20:48)
[2018-08-05] MEDS: POTASSIUM CHLORIDE 100 ML IVPB ×3 (10:30→20:47)
[2018-08-05] MEDS: VANCOMYCIN 1 GM 250 ML IVPB (15:00)
[2018-08-05] MEDS: BUMETANIDE 3 MG in DEXTROSE 5% 18 ML IV (15:23)
[2018-08-05] MEDS: MIRTAZAPINE 15 MG TAB PO ×2 (20:48→21:00)
[2018-08-06] MEDS: LEVALBUTEROL (HFA) 15 GM INHALER INH ×4 (01:30→19:42)
[2018-08-06] MEDS: SOD CHLORIDE 0.9% 500 ML IV (04:01)
[2018-08-06] MEDS: ALBUMIN HUMAN 25% 100 ML IV ×2 (05:53→06:24)
[2018-08-06] MEDS: PANTOPRAZOLE (EC) 40 MG TAB PO (05:53)
[2018-08-06] MEDS: LEVOTHYROXINE 25 MCG TAB PO (05:53)
[2018-08-06] MEDS: PIPER-TAZO 3.375 GM IV (PMX) 100 ML IVPB ×3 (05:53→22:11)
[2018-08-06 06:30] LABS: ADD MAN DIFF? NO
[2018-08-06] MEDS: SOD CHLORIDE 0.9% 1,000 ML IV (06:31)
[2018-08-06 06:34] LABS: WHITE BLOOD COUNT 4.7 10^3/ul (4.8-10.8)
[2018-08-06 06:34] LABS: BASOPHILS % 0.4 % (0.0-2.0); EOSINOPHILS # 0.4 10^3/ul (0.0-0.5); EOSINOPHILS % 8.3 % (0.0-7.0); HEMATOCRIT 29.1 % (37.0-47.0); HEMOGLOBIN 9.3 g/dl (12.0-16.0); LYMPHOCYTES # 1.1 10^3/ul (0.8-2.9); LYMPHOCYTES % 22.6 % (15.0-51.0); MEAN CORPUSCULAR HEMOGLOBIN 28.4 pg (29.0-33.0); MEAN PLATELET VOLUME 10.2 fl (7.4-10.4); MONOCYTE # 0.5 10^3/ul (0.3-0.9); MONOCYTES % 10.7 % (0.0-11.0); NEUTROPHIL # 2.7 10^3/ul (1.6-7.5); NEUTROPHILS % 57.6 % (39.0-77.0); PLATELET COUNT 162 10^3/UL (140-415); RED BLOOD COUNT 3.27 10^6/ul (4.20-5.40); RED CELL DISTRIBUTION WIDTH 14.4 % (11.5-14.5)
[2018-08-06 06:59] LABS: ANION GAP 13 (5-13); BLOOD UREA NITROGEN 10 mg/dl (7-20); CALCIUM 8.2 mg/dl (8.4-10.2); CARBON DIOXIDE 25 mmol/L (21-31); CHLORIDE 105 mmol/L (97-110); CREATININE 1.02 mg/dl (0.44-1.00); GLUCOSE 66 mg/dl (70-220); MAGNESIUM 1.5 mg/dl (1.7-2.5); PHOSPHORUS 3.3 mg/dl (2.5-4.9); SODIUM 143 mmol/L (135-144)
[2018-08-06 08:43] LABS: LACTIC ACID 1.1 mmol/L (0.5-2.0)
[2018-08-06] MEDS: MAGNESIUM SULFATE 2 GM/50 ML 50 ML IVPB (08:47)
[2018-08-06] MEDS: BALSAM PERU/CASTOR OIL 60 GM TUBE TOP (08:47)
[2018-08-06] MEDS: MUPIROCIN 2% 22 GM OINT TOP ×2 (08:48→22:12)
[2018-08-06] MEDS: DOCUSATE SODIUM 10 MG/ML (10ML CUP) PO ×2 (08:48→21:00)
[2018-08-06] MEDS: HEPARIN 5,000 UNIT/1 ML VIAL SC ×2 (08:58→22:13)
[2018-08-06] MEDS: POTASSIUM CHLORIDE 100 ML IVPB ×4 (10:14→17:16)
[2018-08-06] MEDS: metroNIDAZOLE 500 MG/NS (PMX) 100 ML IVPB ×2 (16:25→23:26)
[2018-08-06] MEDS: VANCOMYCIN 1 GM 250 ML IVPB (17:58)
[2018-08-06] MEDS: MIRTAZAPINE 15 MG TAB PO (21:00)
[2018-08-07] MEDS: LEVALBUTEROL (HFA) 15 GM INHALER INH ×5 (01:31→19:25)
[2018-08-07] MEDS ORDERED: ASPIRIN 300 MG SUPP PR (03:44)
[2018-08-07 03:46] LABS: AADO2 Arterial 149.5 mmHg (7.0-24.0); Allen Test ACCEPTAB; Arterial Base Excess -1.6 mmol/L (-3.0-3); Arterial Blood Gas Oxygen Sat 87.5 mmHG (95.0-100.0); Arterial COHb 0.3 % (0.0-3.0); Arterial Fraction of Oxyhgb 87.1 % (93.0-99.0); Arterial HCO3 22.8 mmol/L (22.0-26.0); Arterial MetHb 0.2 % (0.0-1.5); Arterial pCO2 37.5 mmhg (35-45); MODE VENT - AC; Site Left Radial
[2018-08-07] MEDS: PANTOPRAZOLE (EC) 40 MG TAB PO (06:00)
[2018-08-07] MEDS: metroNIDAZOLE 500 MG/NS (PMX) 100 ML IVPB (06:00)
[2018-08-07] MEDS: PIPER-TAZO 3.375 GM IV (PMX) 100 ML IVPB ×3 (06:09→21:08)
[2018-08-07] MEDS: ENOXAPARIN 100 MG/ML SYG SC (06:14)
[2018-08-07 06:15] LABS: ADD MAN DIFF? NO
[2018-08-07 06:19] LABS: BASOPHILS % 0.7 % (0.0-2.0); EOSINOPHILS # 0.4 10^3/ul (0.0-0.5); EOSINOPHILS % 7.4 % (0.0-7.0); HEMATOCRIT 32.5 % (37.0-47.0); LYMPHOCYTES # 0.9 10^3/ul (0.8-2.9); LYMPHOCYTES % 16.5 % (15.0-51.0); MEAN CORPUSCULAR HEMOGLOBIN 28.2 pg (29.0-33.0); MEAN CORPUSCULAR HGB CONC 30.8 g/dl (32.0-37.0); MEAN CORPUSCULAR VOLUME 91.8 fl (82.0-101.0); MONOCYTE # 0.4 10^3/ul (0.3-0.9); MONOCYTES % 7.8 % (0.0-11.0); NEUTROPHIL # 3.8 10^3/ul (1.6-7.5); NEUTROPHILS % 67.1 % (39.0-77.0); PLATELET COUNT 188 10^3/UL (140-415); RED BLOOD COUNT 3.54 10^6/ul (4.20-5.40); RED CELL DISTRIBUTION WIDTH 14.4 % (11.5-14.5)
[2018-08-07 06:19] LABS: WHITE BLOOD COUNT 5.6 10^3/ul (4.8-10.8)
[2018-08-07] MEDS: LEVOTHYROXINE 25 MCG TAB PO (06:26)
[2018-08-07 06:30] LABS: ANION GAP 15 (5-13); BLOOD UREA NITROGEN 8 mg/dl (7-20); CALCIUM 8.3 mg/dl (8.4-10.2); CARBON DIOXIDE 26 mmol/L (21-31); CHLORIDE 104 mmol/L (97-110); CREATININE 1.06 mg/dl (0.44-1.00); GLUCOSE 67 mg/dl (70-220); MAGNESIUM 2.1 mg/dl (1.7-2.5); PHOSPHORUS 3.5 mg/dl (2.5-4.9); SODIUM 145 mmol/L (135-144)
[2018-08-07] MEDS: DOCUSATE SODIUM 10 MG/ML (10ML CUP) PO ×2 (09:00→20:34)
[2018-08-07] MEDS: BALSAM PERU/CASTOR OIL 60 GM TUBE TOP (09:13)
[2018-08-07] MEDS: MUPIROCIN 2% 22 GM OINT TOP ×2 (09:13→20:38)
[2018-08-07] MEDS: DIPHENHYDRAMINE 50 MG INJ IV ×2 (12:12→21:06)
[2018-08-07] MEDS: NYSTATIN 30 GM POWDER BTL TOP ×2 (14:30→20:38)
[2018-08-07] MEDS: VANCOMYCIN 1 GM 250 ML IVPB (15:00)
[2018-08-07 16:05] LABS: VANCOMYCIN,TROUGH 15.3 ug/ml (10.0-20.0)
[2018-08-07] MEDS: LORAZEPAM 2 MG INJ IV ×2 (18:12→20:30)
[2018-08-07] MEDS: FUROSEMIDE 40 MG INJ IV (18:12)
[2018-08-07] MEDS: MIRTAZAPINE 15 MG TAB PO (20:33)
[2018-08-08] MEDS: LEVALBUTEROL (HFA) 15 GM INHALER INH ×4 (01:00→19:33)
[2018-08-08] MEDS: PIPER-TAZO 3.375 GM IV (PMX) 100 ML IVPB ×3 (05:30→21:01)
[2018-08-08] MEDS: LEVOTHYROXINE 25 MCG TAB PO (05:32)
[2018-08-08] MEDS: PANTOPRAZOLE (EC) 40 MG TAB PO (05:33)
[2018-08-08] MEDS: ENOXAPARIN 100 MG/ML SYG SC (05:39)
[2018-08-08 07:19] LABS: ADD MAN DIFF? NO
[2018-08-08 07:22] LABS: WHITE BLOOD COUNT 6.1 10^3/ul (4.8-10.8)
[2018-08-08 07:22] LABS: BASOPHILS % 0.5 % (0.0-2.0); EOSINOPHILS # 0.4 10^3/ul (0.0-0.5); EOSINOPHILS % 5.9 % (0.0-7.0); HEMATOCRIT 30.5 % (37.0-47.0); HEMOGLOBIN 9.6 g/dl (12.0-16.0); LYMPHOCYTES # 1.1 10^3/ul (0.8-2.9); LYMPHOCYTES % 18.5 % (15.0-51.0); MEAN CORPUSCULAR HEMOGLOBIN 28.7 pg (29.0-33.0); MEAN CORPUSCULAR HGB CONC 31.5 g/dl (32.0-37.0); MEAN PLATELET VOLUME 10.5 fl (7.4-10.4); MONOCYTE # 0.6 10^3/ul (0.3-0.9); MONOCYTES % 9.2 % (0.0-11.0); NEUTROPHILS % 65.6 % (39.0-77.0); PLATELET COUNT 198 10^3/UL (140-415); RED BLOOD COUNT 3.35 10^6/ul (4.20-5.40); RED CELL DISTRIBUTION WIDTH 14.4 % (11.5-14.5)
[2018-08-08 07:45] LABS: ALBUMIN 3.2 g/dl (3.3-4.9); ANION GAP 13 (5-13); BLOOD UREA NITROGEN 7 mg/dl (7-20); CALCIUM 8.4 mg/dl (8.4-10.2); CARBON DIOXIDE 26 mmol/L (21-31); CHLORIDE 105 mmol/L (97-110); CREATININE 1.01 mg/dl (0.44-1.00); GLUCOSE 69 mg/dl (70-220); PHOSPHORUS 3.1 mg/dl (2.5-4.9); POTASSIUM 3.5 mmol/L (3.5-5.1); SODIUM 144 mmol/L (135-144)
[2018-08-08] MEDS: DOCUSATE SODIUM 10 MG/ML (10ML CUP) PO ×2 (09:00→20:51)
[2018-08-08] MEDS: BALSAM PERU/CASTOR OIL 60 GM TUBE TOP (09:50)
[2018-08-08] MEDS: POTASSIUM CHLORIDE 100 ML IVPB ×2 (09:50→13:58)
[2018-08-08] MEDS: MUPIROCIN 2% 22 GM OINT TOP ×2 (09:50→20:56)
[2018-08-08] MEDS: NYSTATIN 30 GM POWDER BTL TOP ×2 (09:50→20:56)
[2018-08-08] MEDS: LORAZEPAM 2 MG INJ IV ×2 (10:52→19:26)
[2018-08-08] MEDS: VANCOMYCIN 1 GM 250 ML IVPB (15:00)
[2018-08-08] MEDS: MIRTAZAPINE 15 MG TAB PO (20:51)
[2018-08-09] MEDS: LEVALBUTEROL (HFA) 15 GM INHALER INH ×4 (01:03→19:26)
[2018-08-09] MEDS: PIPER-TAZO 3.375 GM IV (PMX) 100 ML IVPB ×2 (05:19→13:21)
[2018-08-09] MEDS: ACETAMINOPHEN 325 MG TAB PO ×2 (05:21→21:17)
[2018-08-09] MEDS: ENOXAPARIN 100 MG/ML SYG SC (05:50)
[2018-08-09 06:06] LABS: ADD MAN DIFF? NO
[2018-08-09 06:15] LABS: BASOPHIL # 0.1 10^3/ul (0.0-0.1); BASOPHILS % 0.8 % (0.0-2.0); EOSINOPHILS # 0.5 10^3/ul (0.0-0.5); EOSINOPHILS % 7.9 % (0.0-7.0); HEMATOCRIT 30.7 % (37.0-47.0); HEMOGLOBIN 9.6 g/dl (12.0-16.0); LYMPHOCYTES # 1.3 10^3/ul (0.8-2.9); LYMPHOCYTES % 20.3 % (15.0-51.0); MEAN CORPUSCULAR HEMOGLOBIN 28.7 pg (29.0-33.0); MEAN CORPUSCULAR HGB CONC 31.3 g/dl (32.0-37.0); MEAN CORPUSCULAR VOLUME 91.6 fl (82.0-101.0); MEAN PLATELET VOLUME 10.2 fl (7.4-10.4); MONOCYTE # 0.6 10^3/ul (0.3-0.9); MONOCYTES % 9.6 % (0.0-11.0); NEUTROPHILS % 60.8 % (39.0-77.0); PLATELET COUNT 181 10^3/UL (140-415); RED BLOOD COUNT 3.35 10^6/ul (4.20-5.40); RED CELL DISTRIBUTION WIDTH 14.6 % (11.5-14.5)
[2018-08-09 06:15] LABS: WHITE BLOOD COUNT 6.5 10^3/ul (4.8-10.8)
[2018-08-09] MEDS: LEVOTHYROXINE 25 MCG TAB PO (06:46)
[2018-08-09] MEDS: PANTOPRAZOLE (EC) 40 MG TAB PO (06:46)
[2018-08-09 06:57] LABS: ALBUMIN 3.1 g/dl (3.3-4.9); ANION GAP 11 (5-13); BLOOD UREA NITROGEN 8 mg/dl (7-20); CALCIUM 8.3 mg/dl (8.4-10.2); CARBON DIOXIDE 27 mmol/L (21-31); CHLORIDE 105 mmol/L (97-110); GLUCOSE 101 mg/dl (70-220); MAGNESIUM 1.9 mg/dl (1.7-2.5); POTASSIUM 3.4 mmol/L (3.5-5.1); SODIUM 143 mmol/L (135-144)
[2018-08-09] MEDS: DOCUSATE SODIUM 10 MG/ML (10ML CUP) PO ×2 (08:58→21:00)
[2018-08-09] MEDS: MUPIROCIN 2% 22 GM OINT TOP ×2 (09:48→21:17)
[2018-08-09] MEDS: NYSTATIN 30 GM POWDER BTL TOP ×2 (09:50→21:18)
[2018-08-09] MEDS: BALSAM PERU/CASTOR OIL 60 GM TUBE TOP (09:50)
[2018-08-09] MEDS: LORAZEPAM 2 MG INJ IV ×3 (11:42→22:39)
[2018-08-09] MEDS: SOD CHLORIDE 0.9% 1,000 ML IV (12:40)
[2018-08-09] MEDS: VANCOMYCIN 1 GM 250 ML IVPB (14:47)
[2018-08-09] MEDS: POTASSIUM CHLORIDE 100 ML IVPB ×2 (17:52→22:39)
[2018-08-09] MEDS: MIRTAZAPINE 15 MG TAB PO (21:17)
[2018-08-10] MEDS: LEVALBUTEROL (HFA) 15 GM INHALER INH ×4 (01:35→19:58)
[2018-08-10] MEDS: PANTOPRAZOLE (EC) 40 MG TAB PO (06:06)
[2018-08-10] MEDS: ENOXAPARIN 100 MG/ML SYG SC (06:10)
[2018-08-10] MEDS: LEVOTHYROXINE 25 MCG TAB PO (07:35)
[2018-08-10 08:09] LABS: ANION GAP 13 (5-13); BLOOD UREA NITROGEN 8 mg/dl (7-20); CALCIUM 8.2 mg/dl (8.4-10.2); CARBON DIOXIDE 27 mmol/L (21-31); CHLORIDE 105 mmol/L (97-110); CREATININE 0.94 mg/dl (0.44-1.00); GLUCOSE 68 mg/dl (70-220); POTASSIUM 3.8 mmol/L (3.5-5.1); SODIUM 145 mmol/L (135-144)
[2018-08-10] MEDS: DOCUSATE SODIUM 10 MG/ML (10ML CUP) PO ×2 (09:00→21:00)
[2018-08-10] MEDS: BALSAM PERU/CASTOR OIL 60 GM TUBE TOP (09:37)
[2018-08-10] MEDS: NYSTATIN 30 GM POWDER BTL TOP ×2 (09:37→21:34)
[2018-08-10] MEDS: MUPIROCIN 2% 22 GM OINT TOP ×2 (09:52→21:34)
[2018-08-10] MEDS: SOD CHLORIDE 0.9% 1,000 ML IV (09:59)
[2018-08-10] MEDS: LORAZEPAM 2 MG INJ IV (15:40)
[2018-08-10] MEDS: MIRTAZAPINE 15 MG TAB PO (21:33)
[2018-08-11] MEDS: LEVALBUTEROL (HFA) 15 GM INHALER INH ×4 (01:07→19:33)
[2018-08-11] MEDS: LEVOTHYROXINE 25 MCG TAB PO (06:42)
[2018-08-11] MEDS: PANTOPRAZOLE (EC) 40 MG TAB PO (06:42)
[2018-08-11] MEDS: SOD CHLORIDE 0.9% 1,000 ML IV (06:43)
[2018-08-11] MEDS: ENOXAPARIN 100 MG/ML SYG SC (06:57)
[2018-08-11 07:01] LABS: ADD MAN DIFF? NO
[2018-08-11 07:02] LABS: BASOPHILS % 0.6 % (0.0-2.0); EOSINOPHILS # 0.6 10^3/ul (0.0-0.5); EOSINOPHILS % 9.4 % (0.0-7.0); HEMATOCRIT 31.9 % (37.0-47.0); HEMOGLOBIN 9.7 g/dl (12.0-16.0); LYMPHOCYTES # 1.5 10^3/ul (0.8-2.9); LYMPHOCYTES % 23.8 % (15.0-51.0); MEAN CORPUSCULAR HGB CONC 30.4 g/dl (32.0-37.0); MEAN CORPUSCULAR VOLUME 91.9 fl (82.0-101.0); MEAN PLATELET VOLUME 10.1 fl (7.4-10.4); MONOCYTE # 0.7 10^3/ul (0.3-0.9); MONOCYTES % 10.5 % (0.0-11.0); NEUTROPHIL # 3.4 10^3/ul (1.6-7.5); NEUTROPHILS % 55.4 % (39.0-77.0); PLATELET COUNT 213 10^3/UL (140-415); RED BLOOD COUNT 3.47 10^6/ul (4.20-5.40); RED CELL DISTRIBUTION WIDTH 14.8 % (11.5-14.5)
[2018-08-11 07:02] LABS: WHITE BLOOD COUNT 6.2 10^3/ul (4.8-10.8)
[2018-08-11 07:21] LABS: INR 1.14; PROTIME 14.7 Sec (11.9-14.9); PT RATIO 1.1
[2018-08-11 07:27] LABS: ANION GAP 9 (5-13); BLOOD UREA NITROGEN 8 mg/dl (7-20); CALCIUM 8.7 mg/dl (8.4-10.2); CARBON DIOXIDE 26 mmol/L (21-31); CHLORIDE 109 mmol/L (97-110); CREATININE 0.88 mg/dl (0.44-1.00); GLUCOSE 70 mg/dl (70-220); POTASSIUM 3.3 mmol/L (3.5-5.1); SODIUM 144 mmol/L (135-144)
[2018-08-11] MEDS: MUPIROCIN 2% 22 GM OINT TOP ×2 (08:57→20:19)
[2018-08-11] MEDS: DOCUSATE SODIUM 10 MG/ML (10ML CUP) PO ×2 (08:57→20:17)
[2018-08-11] MEDS: BALSAM PERU/CASTOR OIL 60 GM TUBE TOP (08:57)
[2018-08-11] MEDS: NYSTATIN 30 GM POWDER BTL TOP ×2 (08:57→20:17)
[2018-08-11] MEDS: LORAZEPAM 2 MG INJ IV ×3 (10:13→22:36)
[2018-08-11] MEDS: POTASSIUM CHLORIDE 100 ML IVPB ×2 (11:32→13:31)
[2018-08-11] MEDS: MIRTAZAPINE 15 MG TAB PO (20:11)
[2018-08-12] MEDS: SOD CHLORIDE 0.9% 1,000 ML IV (01:04)
[2018-08-12] MEDS: LEVALBUTEROL (HFA) 15 GM INHALER INH ×4 (01:28→20:14)
[2018-08-12] MEDS: ENOXAPARIN 100 MG/ML SYG SC (05:00)
[2018-08-12] MEDS: PANTOPRAZOLE (EC) 40 MG TAB PO (06:00)
[2018-08-12] MEDS: LEVOTHYROXINE 25 MCG TAB PO (06:13)
[2018-08-12] MEDS: ACETAMINOPHEN 325 MG TAB PO (07:58)
[2018-08-12] MEDS: DOCUSATE SODIUM 10 MG/ML (10ML CUP) PO ×2 (09:00→20:10)
[2018-08-12] MEDS: NYSTATIN 30 GM POWDER BTL TOP ×2 (09:14→20:09)
[2018-08-12] MEDS: BALSAM PERU/CASTOR OIL 60 GM TUBE TOP (09:14)
[2018-08-12] MEDS: MUPIROCIN 2% 22 GM OINT TOP ×2 (09:14→20:09)
[2018-08-12 09:22] LABS: ANION GAP 11 (5-13); BLOOD UREA NITROGEN 7 mg/dl (7-20); CALCIUM 8.5 mg/dl (8.4-10.2); CARBON DIOXIDE 23 mmol/L (21-31); CHLORIDE 109 mmol/L (97-110); CREATININE 0.83 mg/dl (0.44-1.00); GLUCOSE 72 mg/dl (70-220); POTASSIUM 3.7 mmol/L (3.5-5.1); SODIUM 143 mmol/L (135-144)
[2018-08-12] MEDS: LORAZEPAM 2 MG INJ IV ×2 (11:58→17:26)
[2018-08-12] MEDS ORDERED: FENTAnyl 50 MCG/ML VIAL ×2 (15:55→16:29)
[2018-08-12] MEDS ORDERED: ETOMIDATE 20 MG INJ ×2 (15:56→16:29)
[2018-08-12] MEDS ORDERED: PROPOFOL 20 ML (16:29)
[2018-08-12] MEDS ORDERED: LIDOCAINE 1% (MPF) 5 ML VIAL SC ×2 (17:30→18:00)
[2018-08-12] MEDS: MIRTAZAPINE 15 MG TAB PO (20:16)
[2018-08-12] MEDS: HALOPERIDOL 5 MG INJ IM (20:54)
[2018-08-13] MEDS: LEVALBUTEROL (HFA) 15 GM INHALER INH ×4 (01:06→20:00)
[2018-08-13] MEDS: SOD CHLORIDE 0.9% 1,000 ML IV ×2 (03:39→19:20)
[2018-08-13] MEDS: ENOXAPARIN 100 MG/ML SYG SC (05:30)
[2018-08-13] MEDS: PANTOPRAZOLE (EC) 40 MG TAB PO (06:00)
[2018-08-13] MEDS: LEVOTHYROXINE 25 MCG TAB PO (06:09)
[2018-08-13 06:49] LABS: ADD MAN DIFF? NO
[2018-08-13 07:30] LABS: ANION GAP 3 (5-13); BLOOD UREA NITROGEN 7 mg/dl (7-20); CALCIUM 8.3 mg/dl (8.4-10.2); CARBON DIOXIDE 24 mmol/L (21-31); CHLORIDE 115 mmol/L (97-110); CREATININE 0.83 mg/dl (0.44-1.00); GLUCOSE 64 mg/dl (70-220); POTASSIUM 3.7 mmol/L (3.5-5.1); SODIUM 142 mmol/L (135-144)
[2018-08-13 07:55] LABS: WHITE BLOOD COUNT 5.7 10^3/ul (4.8-10.8)
[2018-08-13 07:55] LABS: BASOPHIL # 0.1 10^3/ul (0.0-0.1); BASOPHILS % 0.9 % (0.0-2.0); EOSINOPHILS # 0.6 10^3/ul (0.0-0.5); EOSINOPHILS % 10.4 % (0.0-7.0); HEMATOCRIT 28.3 % (37.0-47.0); HEMOGLOBIN 8.8 g/dl (12.0-16.0); LYMPHOCYTES # 1.5 10^3/ul (0.8-2.9); LYMPHOCYTES % 26.8 % (15.0-51.0); MEAN CORPUSCULAR HEMOGLOBIN 28.8 pg (29.0-33.0); MEAN CORPUSCULAR HGB CONC 31.1 g/dl (32.0-37.0); MEAN CORPUSCULAR VOLUME 92.5 fl (82.0-101.0); MEAN PLATELET VOLUME 10.6 fl (7.4-10.4); MONOCYTE # 0.6 10^3/ul (0.3-0.9); MONOCYTES % 10.1 % (0.0-11.0); NEUTROPHIL # 2.9 10^3/ul (1.6-7.5); NEUTROPHILS % 51.6 % (39.0-77.0); PLATELET COUNT 218 10^3/UL (140-415); RED BLOOD COUNT 3.06 10^6/ul (4.20-5.40); RED CELL DISTRIBUTION WIDTH 14.4 % (11.5-14.5)
[2018-08-13] MEDS: DOCUSATE SODIUM 10 MG/ML (10ML CUP) PO ×2 (09:00→21:00)
[2018-08-13] MEDS: NYSTATIN 30 GM POWDER BTL TOP ×2 (09:11→20:59)
[2018-08-13] MEDS: MUPIROCIN 2% 22 GM OINT TOP ×2 (09:11→20:59)
[2018-08-13] MEDS: BALSAM PERU/CASTOR OIL 60 GM TUBE TOP (09:12)
[2018-08-13] MEDS: LORAZEPAM 2 MG INJ IV ×2 (14:07→18:41)
[2018-08-13] MEDS ORDERED: PHENYLephrine (100 MCG/ML) 5ML SYG (14:10)
[2018-08-13] MEDS: DIPHENHYDRAMINE 50 MG INJ IV (15:29)
[2018-08-13] MEDS: MIRTAZAPINE 15 MG TAB PO (20:59)
== END 2018-08-13 21:40 | DRG 870 ==
LOC: TEL 08-03 19:29 → E/R 04:21 → ICU 07-27 11:50 → 6WM 05:56
PROC: 5A1955Z Respiratory Ventilation, Greater than 96 Consecutive Hours (ICD-10-PCS; principal; 2018-08-13 14:00)
PROC: 0DB68ZZ Excision of Stomach, Via Natural or Artificial Opening Endoscopic (ICD-10-PCS; 2018-08-13 14:00)
PROC: 0DHA3UZ Insertion of Feeding Device into Jejunum, Percutaneous Approach (ICD-10-PCS; 2018-08-13 14:00)
PROC: 05HY33Z Insertion of Infusion Device into Upper Vein, Percutaneous Approach (ICD-10-PCS; 2018-08-13 14:00)
PROC: 02HV33Z Insertion of Infusion Device into Superior Vena Cava, Percutaneous Approach (ICD-10-PCS; 2018-08-13 14:00)
DX: A41.9 Sepsis, unspecified organism (principal); J69.0 Pneumonitis due to inhalation of food and vomit; J96.22 Acute and chronic respiratory failure with hypercapnia; J96.21 Acute and chronic respiratory failure with hypoxia; J18.9 Pneumonia, unspecified organism; G92 Toxic encephalopathy; J95.03 Malfunction of tracheostomy stoma; N17.9 Acute kidney failure, unspecified; C78.00 Secondary malignant neoplasm of unspecified lung; I82.621 Acute embolism and thrombosis of deep veins of right upper extremity; Z66 Do not resuscitate; R65.20 Severe sepsis without septic shock; K21.9 Gastro-esophageal reflux disease without esophagitis; E03.9 Hypothyroidism, unspecified; D63.8 Anemia in other chronic diseases classified elsewhere; Y95 Nosocomial condition; D69.6 Thrombocytopenia, unspecified; E87.6 Hypokalemia; R13.10 Dysphagia, unspecified; I11.0 Hypertensive heart disease with heart failure; I50.9 Heart failure, unspecified; R22.0 Localized swelling, mass and lump, head; R63.3 Feeding difficulties; Z85.850 Personal history of malignant neoplasm of thyroid; Z98.890 Other specified postprocedural states; Z87.01 Personal history of pneumonia (recurrent)
CPT/HCPCS: 36415; 36569; 36600; 70450; 71045; 74230; 76536; 76937; 80048; 80053; 80069; 80202; 82803; 82962; 83036; 83605; 83735; 84100; 84443; 84484; 85025; 85610; 85730; 87040; 87070; 87081; 89220; 92526; 92610; 92611; 93005; 93971; 94002; 94003; 94640; 94664; 97110; 97161; 97165; 97530; 99285-25

== ENCOUNTER 2018-11-08 09:52 | Emergency (ER) | payer MEDICARE, OTHER ==
[2018-11-08] MEDS: ACETAMINOPHEN 650 MG SUPP PR (10:07)
[2018-11-08] MEDS: ALBUTEROL 0.5% (NEB) 2.5 MG/0.5 ML AMP INH (10:24)
[2018-11-08 10:29] LABS: ADD MAN DIFF? NO
[2018-11-08] MEDS: SODIUM CHLORIDE 0.9% 1L BAG IV* (10:29)
[2018-11-08] MEDS: LEVOFLOXACIN 750MG/D5W (PMX) 150 ML IVPB (10:47)
[2018-11-08 10:53] LABS: WHITE BLOOD COUNT 7.5 10^3/ul (4.8-10.8)
[2018-11-08 10:53] LABS: BASOPHIL # 0.1 10^3/ul (0.0-0.1); BASOPHILS % 0.7 % (0.0-2.0); EOSINOPHILS # 0.2 10^3/ul (0.0-0.5); EOSINOPHILS % 3.2 % (0.0-7.0); HEMATOCRIT 33.2 % (37.0-47.0); HEMOGLOBIN 10.1 g/dl (12.0-16.0); LYMPHOCYTES # 2.1 10^3/ul (0.8-2.9); LYMPHOCYTES % 27.7 % (15.0-51.0); MEAN CORPUSCULAR HEMOGLOBIN 27.8 pg (29.0-33.0); MEAN CORPUSCULAR HGB CONC 30.4 g/dl (32.0-37.0); MEAN CORPUSCULAR VOLUME 91.5 fl (82.0-101.0); MEAN PLATELET VOLUME 9.9 fl (7.4-10.4); MONOCYTE # 0.4 10^3/ul (0.3-0.9); MONOCYTES % 5.9 % (0.0-11.0); NEUTROPHIL # 4.6 10^3/ul (1.6-7.5); PLATELET COUNT 242 10^3/UL (140-415); RED BLOOD COUNT 3.63 10^6/ul (4.20-5.40); RED CELL DISTRIBUTION WIDTH 14.6 % (11.5-14.5)
[2018-11-08 11:00] LABS: INR 0.95; PROTIME 12.8 Sec (11.9-14.9)
[2018-11-08] MEDS: FUROSEMIDE 40 MG INJ IV (11:02)
[2018-11-08] MEDS: ASPIRIN 81 MG TAB PO (11:02)
[2018-11-08 11:05] LABS: PARTIAL THROMBOPLASTIN TIME 23.8 Sec (23.0-35.0)
[2018-11-08 11:16] LABS: ALANINE AMINOTRANSFERASE 12 IU/L (13-69); ALBUMIN 3.7 g/dl (3.3-4.9); ALBUMIN/GLOBULIN RATIO 1.12; ALKALINE PHOSPHATASE 53 IU/L (42-121); ANION GAP 8 (5-13); ASPARTATE AMINO TRANSFERASE 30 IU/L (15-46); BILIRUBIN,INDIRECT 0.2 mg/dl (0-1.1); BILIRUBIN,TOTAL 0.2 mg/dl (0.2-1.3); BLOOD UREA NITROGEN 16 mg/dl (7-20); C-REACTIVE PROTEIN 0.7 mg/dl (0.0-0.9); CALCIUM 8.9 mg/dl (8.4-10.2); CARBON DIOXIDE 33 mmol/L (21-31); CHLORIDE 99 mmol/L (97-110); CREATININE 0.69 mg/dl (0.44-1.00); GLUCOSE 106 mg/dl (70-220); LIPASE 57 U/L (23-300); POTASSIUM 4.8 mmol/L (3.5-5.1); SODIUM 140 mmol/L (135-144)
[2018-11-08 11:18] LABS: ADD UMIC YES; UR ASCORBIC ACID NEGATIVE (NEGATIVE); UR BILIRUBIN (Dip) NEGATIVE (NEGATIVE); UR BLOOD (Dip) NEGATIVE (NEGATIVE); UR CLARITY CLEAR (CLEAR); UR COLOR YELLOW (YELLOW); UR GLUCOSE (Dip) NEGATIVE (NEGATIVE); UR KETONES (Dip) NEGATIVE (NEGATIVE); UR LEUKOCYTE ESTERASE (Dip) 2+ Leu/ul (NEGATIVE); UR NITRITE (Dip) NEGATIVE (NEGATIVE); UR RBC 0 /HPF (0-5); UR SPECIFIC GRAVITY (Dip) 1.017 (1.003-1.030); UR TOTAL PROTEIN (Dip) NEGATIVE (NEGATIVE); UR UROBILINOGEN (Dip) NEGATIVE (NEGATIVE); UR WBC 10 /HPF (0-5)
[2018-11-08 11:24] LABS: TROPONIN-I < 0.012 ng/ml (0.000-0.120)
[2018-11-08] MEDS ORDERED: LORAZEPAM 1 MG TAB PO (13:00)
[2018-11-08] MEDS ORDERED: ACETAMINOPHEN 325 MG TAB PO (13:00)
[2018-11-08] MEDS: CALCIUM CARBONATE 1.25 GM TAB PO (13:00)
[2018-11-08] MEDS ORDERED: SENNA TAB PO (13:00)
[2018-11-08] MEDS ORDERED: GABAPENTIN 100 MG CAP PO (13:00)
[2018-11-08] MEDS ORDERED: BALSAM PERU/CASTOR OIL 60 GM TUBE TOP (13:00)
[2018-11-08] MEDS ORDERED: ONDANSETRON 4 MG INJ IV (13:00)
[2018-11-08] MEDS ORDERED: COLCHICINE 0.6 MG TAB PO (13:00)
[2018-11-08] MEDS ORDERED: LEVALBUTEROL (HFA) 15 GM INHALER INH ×2 (13:00→14:00)
[2018-11-08] MEDS ORDERED: NACL 0.9% 3 ML SYG IV (13:00)
[2018-11-08 14:17] LABS: B-TYPE NATRIURETIC PEPTIDE 784 PG/ML (0-450)
[2018-11-08] MEDS ORDERED: FUROSEMIDE 20 MG INJ IV (18:00)
[2018-11-08] MEDS ORDERED: ATORVASTATIN 40 MG TAB PO (21:00)
[2018-11-08] MEDS ORDERED: MIRTAZAPINE 15 MG TAB GTB (21:00)
[2018-11-09] MEDS ORDERED: LEVOTHYROXINE 25 MCG TAB PO (07:00)
[2018-11-09] MEDS ORDERED: ENOXAPARIN 40 MG/0.4 ML SYG SC (09:00)
[2018-11-09] MEDS ORDERED: SPIRONOLACTONE 25 MG TAB PO (09:00)
[2018-11-09] MEDS ORDERED: ASPIRIN (EC) 81 MG TAB PO (09:00)
[2018-11-09] MEDS ORDERED: LEVOFLOXACIN 500MG/D5W (PMX) 100 ML IVPB (13:00)
== END 2018-11-08 14:47 | disposition home or self-care (01) ==
LOC: E/R 09:52
DX: I11.0 Hypertensive heart disease with heart failure (principal); I50.41 Acute combined systolic (congestive) and diastolic (congestive) heart failure; N39.0 Urinary tract infection, site not specified; K43.9 Ventral hernia without obstruction or gangrene; J44.9 Chronic obstructive pulmonary disease, unspecified; Z85.850 Personal history of malignant neoplasm of thyroid; Z79.82 Long term (current) use of aspirin; Z79.84 Long term (current) use of oral hypoglycemic drugs
CPT/HCPCS: 36415; 71045; 74176; 80053; 81001; 83605; 83690; 83880; 84484; 85025; 85610; 85730; 86140; 87040-91; 87086; 93005; 94664; 96374; 96375; 99285-25